=== PATIENT | female | born 1950 | race Caucasian/White ===

== ENCOUNTER 2018-12-01 09:43 | Emergency (ER) | payer OTHER ==
[~2018-12-01] VITALS: Ht 165.1 cm; Wt 65.8 kg
[2018-12-01] MEDS ORDERED: LEXAPRO 10 MG T10 M1 PO (09:46)
[2018-12-01] MEDS ORDERED: TYLENOL EXTRA500 MG PO (11:05)
[2018-12-01] MEDS ORDERED: ROBAXIN 750 MG750 MG PO (11:05)
[2018-12-01 11:08] VITALS: BP 110/58
--- NOTE | 2018-12-03 08:21 | EKG ---
[place] [address] [facility] [employer] [place] [address] ELECTROCARDIOGRAM REPORT Name: ABHISHEK FERRERA Room #: [facility]ITAL[facility]aniella[facility]ani[facility] [id number] Admission: 12/01/18 Attend Phys: Discharge: 12/01/18 Date of : 52 Report #: [id number] THIS REPORT FOR: //name// [facility] ED Test Date: 2018-12-01 Test Time: 10:07:05 Pat Name: ABHISHEK FERRERA Department: Room: Gender: F It Training Specialist: GISELA : 1950 Requested By: Campos Weiss Order Number: [id number] MD: Oscar Agarwla Measurements Intervals [place] Rate: 72 P: 34 AK: 155 QRS: -13 QRSD: 96 T: 19 QT: 397 QTc: 435 Interpretive Statements Sinus rhythm No significant abnormality Baseline wander in lead(s) V1,V2 No previous ECG available for comparison Electronically Signed On 12-03-2018 8:21:18 CDT by Oscar Agarwal [email or web address] <ELECTRONICALLY SIGNED> By: Oscar Agarwal MD, [facility] 12/03/18 0821 1007 1007 Oscar Agarwal MD, FACC /EPI
== END 2018-12-01 11:13 | disposition home or self-care (01) ==
LOC: ER 09:43
DX: S16.1XXA Strain of muscle, fascia and tendon at neck level, initial encounter (principal); S09.8XXA Other specified injuries of head, initial encounter; F32.9 Major depressive disorder, single episode, unspecified; W01.198A Fall on same level from slipping, tripping and stumbling with subsequent striking against other object, initial encounter; Y92.89 Other specified places as the place of occurrence of the external cause; Y93.89 Activity, other specified; Y99.8 Other external cause status

== ENCOUNTER → 2018-12-09 | Outpatient (CLI) | payer OTHER ==
[~2018-12-09] MED LIST: LEXAPRO 10 MG T10 M1 PO; ROBAXIN 750 MG750 MG PO; TYLENOL EXTRA500 MG PO
== END ==
LOC: RAD 14:31
DX: R07.89 Other chest pain (principal)